=== PATIENT | female | born 1960 | race Hispanic/Latino ===

== ENCOUNTER 2021-10-02 13:51 | Inpatient (IN) | payer OTHER ==
[~2021-10-02] VITALS: Ht 149.9 cm; Wt 46.5 kg
[2021-10-02 14:27] LABS: BASOPHILS % (AUTO) 0.7 % (0.0-5.0); EOSINOPHILS % (AUTO) 1.2 % (0.0-8.0); HEMATOCRIT 38.6 % (36-48); MEAN CORPUSCULAR HEMOGLOBIN 28.7 pg (27.0-33.0); MEAN CORPUSCULAR HGB CONC 33.4 g/dL (32.0-36.0); MEAN CORPUSCULAR VOLUME 85.8 fL (79-99); MONOCYTES % (AUTO) 6.6 % (3.0-13.0); NEUTROPHILS % (AUTO) 63.2 % (40.0-77.0); PLATELET COUNT (AUTO) 325 K/uL (130-400); RED CELL DISTRIBUTION WIDTH 13.3 % (11.0-15.5); WHITE BLOOD COUNT (AUTO) 5.8 K/uL (4.8-10.8)
[2021-10-02] MEDS ORDERED: ASPIRIN 325MG TAB PO ONE (14:30)
[2021-10-02] MEDS ORDERED: NITROGLYCERIN 1GM OINT 1 INCH/1GM TD ONE (14:30)
[2021-10-02] MEDS ORDERED: NITROGLYCERIN 0.4 MG SL TAB SL PRN (14:30)
[2021-10-02 14:34] LABS: CREATININE 0.6 mg/dL (0.5-1.5)
[2021-10-02 14:43] LABS: ALBUMIN 3.3 g/dL (3.5-5.0); BILIRUBIN,TOTAL 0.3 mg/dL (0.2-1.0); MAGNESIUM 1.6 mg/dL (1.80-2.40); TOTAL PROTEIN, SERUM 7.2 g/dL (6.0-8.3)
[2021-10-02 14:48] LABS: B-TYPE NATRIURETIC PEPTIDE 23 pg/mL (0-100)
[2021-10-02 14:55] LABS: APPEARANCE,URINE Clear (CLEAR); BILIRUBIN,URINE Negative (NEGATIVE); COLOR,URINE Yellow (YELLOW); GLUCOSE, URINE (UA) 250 mg/dL (NEGATIVE); KETONES,URINE Negative (NEGATIVE); LEUKOCYTE ESTERASE ,URINE Small (NEGATIVE); NITRATE,URINE Negative (NEGATIVE); OCCULT BLOOD,URINE Negative (NEGATIVE); PH,URINE 5.5 (5.0-8.0); PROTEIN,URINE Negative (NEGATIVE); UROBILINOGEN,URINE 0.2 mg/dL (0.2-1.0)
[2021-10-02 15:14] LABS: BACTERIA,URINE Few /HPF (None Seen); RBC,URINE None Seen /HPF (0-1); SQUAMOUS EPITHELIAL CELL,UR 0-2 /HPF (0-2); TRICHOMONAS,URINE Few /LPF (None Seen)
[2021-10-02] MEDS ORDERED: LOSARTAN 25 MG TABLET PO ONE (17:00)
[2021-10-02] MEDS ORDERED: MORPHINE 2 MG SYG IVP PRN (17:00)
[2021-10-02 17:15] LABS: HEMOGLOBIN A1C 10.7 % (4.0-6.0)
[2021-10-02 20:09] VITALS: BP 126/56
[2021-10-02] MEDS ORDERED: GLIP5TAB11 PO (20:27)
[2021-10-02] MEDS ORDERED: METF-446 PO (20:28)
[2021-10-02] MEDS ORDERED: MECL-160 PO (20:28)
[2021-10-02] MEDS ORDERED: LOSA25TA41 PO (20:29)
[2021-10-02] MEDS ORDERED: MAGNESIUM 2GM PREMIX 50ML 50 ML IV SCH (20:30)
[2021-10-02] MEDS ORDERED: CEPH250C3 PO (20:36)
[2021-10-02] MEDS ORDERED: SERT-438 PO (20:36)
[2021-10-02] MEDS ORDERED: METOPROLOL TARTRATE 25 MG TAB PO SCH (21:00)
[2021-10-02] MEDS: CEPHALEXIN 500 MG CAPSULE PO SCH (21:02)
[2021-10-02] MEDS: ATORVASTATIN 40 MG TABLET PO SCH (21:02)
[2021-10-02 23:48] VITALS: BP 97/50
[2021-10-03 03:34] LABS: BASOPHILS % (AUTO) 0.5 % (0.0-5.0); EOSINOPHILS % (AUTO) 1.9 % (0.0-8.0); HEMATOCRIT 35.2 % (36-48); LYMPHOCYTES % (AUTO) 36.2 % (21.0-51.0); MEAN CORPUSCULAR HEMOGLOBIN 27.8 pg (27.0-33.0); MEAN CORPUSCULAR VOLUME 84.2 fL (79-99); MONOCYTES % (AUTO) 7.3 % (3.0-13.0); NEUTROPHILS % (AUTO) 53.8 % (40.0-77.0); PLATELET COUNT (AUTO) 318 K/uL (130-400); RED BLOOD CELL COUNT(AUTO) 4.18 MIL/uL (4.00-5.50); RED CELL DISTRIBUTION WIDTH 13.2 % (11.0-15.5); WHITE BLOOD COUNT (AUTO) 6.4 K/uL (4.8-10.8)
[2021-10-03 03:50] LABS: CREATININE 0.5 mg/dL (0.5-1.5); MAGNESIUM 2.1 mg/dL (1.80-2.40); POTASSIUM 4.3 mmol/L (3.5-5.1)
[2021-10-03 04:44] VITALS: BP 101/52
[2021-10-03 07:46] VITALS: BP 110/57
[2021-10-03] MEDS ORDERED: INSULIN GLARGINE 100 UNITS/ML 10 ML VIAL SQ SCH (08:00)
[2021-10-03] MEDS: CEPHALEXIN 500 MG CAPSULE PO SCH ×2 (08:10→21:03)
[2021-10-03] MEDS ORDERED: ASPIRIN 81MG CHEW TAB PO SCH (09:00)
[2021-10-03] MEDS ORDERED: LOSARTAN 25 MG TABLET PO SCH (09:00)
[2021-10-03] MEDS: METFORMIN HCL 500 MG TABLET PO SCH ×3 (09:07→17:07)
[2021-10-03 11:00] VITALS: BP 101/56
[2021-10-03 15:00] VITALS: BP 107/51
[2021-10-03 19:06] VITALS: BP 120/56
[2021-10-03] MEDS ORDERED: INSU3INS3 SQ (19:38)
[2021-10-03] MEDS ORDERED: PEN1DIS.48 MC (19:38)
[2021-10-03] MEDS ORDERED: METF-446 PO (19:38)
[2021-10-03] MEDS ORDERED: LOSA25TA41 PO (19:38)
[2021-10-03] MEDS ORDERED: ATOR40TA69 PO (19:48)
[2021-10-03] MEDS ORDERED: ASPI-1005 PO (19:48)
[2021-10-03] MEDS ORDERED: EMPA10TA PO (19:48)
[2021-10-03] MEDS ORDERED: SERT-438 PO (19:49)
[2021-10-03] MEDS: ATORVASTATIN 40 MG TABLET PO SCH (21:03)
== END 2021-10-03 21:50 | disposition home or self-care (01) | DRG 313 ==
LOC: EDH 13:51 → EDHIP 13:52 → OBSVTOIN 13:52 → 2AH 18:46
PROVIDERS: ADMIT Internal Medicine; ATTEND Internal Medicine
DX: R07.89 Other chest pain (principal); E11.65 Type 2 diabetes mellitus with hyperglycemia; E78.00 Pure hypercholesterolemia, unspecified; E78.5 Hyperlipidemia, unspecified; F32.A Depression, unspecified; Z86.73 Personal history of transient ischemic attack (TIA), and cerebral infarction without residual deficits
CPT/HCPCS: 36415; 70450; 71045; 80048; 80053; 80061; 81001; 82550; 82948; 83036; 83735; 83880; 84443; 84484; 85025; 87088; 92610; 93306; 93356; 97039; G0378; J3475

== ENCOUNTER 2023-06-08 19:06 | Emergency (ER) | payer OTHER ==
[~2023-06-08] VITALS: Ht 149.9 cm; Wt 59.0 kg
[~2023-06-08 19:06] MED LIST: ASPI-1005 PO; ATOR40TA69 PO; CEPH500B PO; CLOP-31 PO; EMPA10TA PO; INSU3INS3 SQ; LOSA25TA41 PO; METF-446 PO; METO25 PO; PEN1DIS.48 MC; SERT-438 PO
[2023-06-08 19:28] LABS: BASOPHILS # (AUTO) 0.03 K/uL (0.00-0.20); BASOPHILS % (AUTO) 0.5 % (0.0-5.0); EOSINOPHILS # (AUTO) 0.18 K/uL (0.00-0.70); HEMATOCRIT 30.7 % (36-48); IMMATURE GRANULOCYTE ABSOLUTE 0.01 K/uL (0-1); LYMPHOCYTES # (AUTO) 1.9 K/uL (1.0-4.8); LYMPHOCYTES % (AUTO) 30.7 % (21.0-51.0); MEAN CORPUSCULAR HEMOGLOBIN 28.9 pg (27.0-33.0); MEAN CORPUSCULAR HGB CONC 34.5 g/dL (32.0-36.0); MEAN CORPUSCULAR VOLUME 83.7 fL (79-99); MONOCYTES # (AUTO) 0.4 K/uL (0.1-1.0); MONOCYTES % (AUTO) 6.3 % (3.0-13.0); NEUTROPHILS # (AUTO) 3.6 K/uL (1.8-7.7); NEUTROPHILS % (AUTO) 59.3 % (40.0-77.0); PLATELET COUNT (AUTO) 294 K/uL (130-400); RED BLOOD CELL COUNT(AUTO) 3.67 MIL/uL (4.00-5.50); RED CELL DISTRIBUTION WIDTH 13.5 % (11.0-15.5); WHITE BLOOD COUNT (AUTO) 6.1 K/uL (4.8-10.8)
[2023-06-08 19:41] LABS: CREATININE 0.7 mg/dL (0.5-1.5); POTASSIUM 3.6 mmol/L (3.5-5.1)
[2023-06-08 19:45] LABS: BILIRUBIN,TOTAL 0.2 mg/dL (0.2-1.0)
[2023-06-08 19:46] LABS: ALBUMIN 3.1 g/dL (3.5-5.0); TOTAL PROTEIN, SERUM 7.1 g/dL (6.0-8.3)
[2023-06-08 19:48] LABS: INR < 0.93 (0.85-1.15)
[2023-06-08] MEDS ORDERED: IOHEXOL-350 75 ML VIAL IV ONE (20:57)
[2023-06-08] MEDS ORDERED: GLIP5TAB15 PO (21:48)
[2023-06-08 22:17] VITALS: BP 138/74; PULSE 86; RESP 18; O2SAT 98
== END 2023-06-08 22:21 | disposition home or self-care (01) ==
LOC: EDH 19:06
DX: R09.89 Other specified symptoms and signs involving the circulatory and respiratory systems (principal); M79.10 Myalgia, unspecified site; I10 Essential (primary) hypertension; E11.9 Type 2 diabetes mellitus without complications; E78.00 Pure hypercholesterolemia, unspecified; Z79.82 Long term (current) use of aspirin; Z79.84 Long term (current) use of oral hypoglycemic drugs; Z79.899 Other long term (current) drug therapy; Z98.890 Other specified postprocedural states
CPT/HCPCS: 99285; 71260; 71045; 84484; 80053; 83880; 83690; 85025; 85610; 85730; 36415; 93005; Q9967

== ENCOUNTER 2023-11-22 13:53 | Emergency (ER) | payer OTHER ==
[~2023-11-22] VITALS: Ht 149.9 cm; Wt 63.5 kg
[~2023-11-22 13:53] MED LIST changes: +GLIP5TAB15 PO
[2023-11-22 16:01] LABS: BASOPHILS # (AUTO) 0.03 K/uL (0.00-0.20); BASOPHILS % (AUTO) 0.3 % (0.0-5.0); EOSINOPHILS # (AUTO) 0.02 K/uL (0.00-0.70); EOSINOPHILS % (AUTO) 0.2 % (0.0-8.0); HEMATOCRIT 38.1 % (36-48); IMMATURE GRANULOCYTE ABSOLUTE 0.07 K/uL (0-1); LYMPHOCYTES # (AUTO) 1.8 K/uL (1.0-4.8); LYMPHOCYTES % (AUTO) 16.4 % (21.0-51.0); MEAN CORPUSCULAR HEMOGLOBIN 28.1 pg (27.0-33.0); MEAN CORPUSCULAR HGB CONC 33.6 g/dL (32.0-36.0); MEAN CORPUSCULAR VOLUME 83.6 fL (79-99); MONOCYTES # (AUTO) 0.7 K/uL (0.1-1.0); MONOCYTES % (AUTO) 6.2 % (3.0-13.0); NEUTROPHILS # (AUTO) 8.3 K/uL (1.8-7.7); NEUTROPHILS % (AUTO) 76.3 % (40.0-77.0); PLATELET COUNT (AUTO) 340 K/uL (130-400); RED BLOOD CELL COUNT(AUTO) 4.56 MIL/uL (4.00-5.50); RED CELL DISTRIBUTION WIDTH 13.2 % (11.0-15.5); WHITE BLOOD COUNT (AUTO) 10.9 K/uL (4.8-10.8)
[2023-11-22 16:07] LABS: CREATININE 0.8 mg/dL (0.5-1.0); POTASSIUM 3.5 mmol/L (3.5-5.1)
[2023-11-22 16:16] LABS: ALBUMIN 2.7 g/dL (3.5-5.0); BILIRUBIN,TOTAL 0.7 mg/dL (0.2-1.0); TOTAL PROTEIN, SERUM 8.2 g/dL (6.0-8.3)
[2023-11-22] MEDS: ONDANSETRON 4MG INJ IVP ONE (16:54)
[2023-11-22] MEDS: MORPHINE 4 MG SYG IVP ONE (16:54)
[2023-11-22 17:22] LABS: ADD UA MICROSCOPIC YES; APPEARANCE,URINE TURBID (CLEAR); BILIRUBIN,URINE NEGATIVE (NEGATIVE); COLOR,URINE YELLOW (YELLOW); GLUCOSE, URINE (UA) >=1000 mg/dL (NEGATIVE); KETONES,URINE 40 mg/dL (NEGATIVE); LEUKOCYTE ESTERASE ,URINE 500 Leu/uL (NEGATIVE); NITRATE,URINE NEGATIVE (NEGATIVE); OCCULT BLOOD,URINE MODERATE (NEGATIVE); PH,URINE 5.5 (5.0-8.0); PROTEIN,URINE 100 mg/dL (NEGATIVE)
[2023-11-22 17:23] LABS: BACTERIA,URINE MOD /HPF (None Seen); MUCUS,URINE RARE LPF (None Seen); NON-SQUAMOUS EPITHELIAL CELL 2 /HPF (0-2); SQUAMOUS EPITHELIAL CELL,UR FEW /HPF (0-2); WBC CLUMP MOD /HPF (0-1); WBC,URINE 26-50 /HPF (0-1)
[2023-11-22 17:49] VITALS: BP 134/71; PULSE 76; RESP 18; O2SAT 98
== END 2023-11-22 17:48 | disposition home or self-care (01) ==
LOC: EDH 13:53
DX: R10.9 Unspecified abdominal pain (principal); I10 Essential (primary) hypertension; E11.9 Type 2 diabetes mellitus without complications; E78.00 Pure hypercholesterolemia, unspecified; Z79.82 Long term (current) use of aspirin; Z79.84 Long term (current) use of oral hypoglycemic drugs; Z79.899 Other long term (current) drug therapy; Z98.890 Other specified postprocedural states
CPT/HCPCS: 99285; 74176; 96374; 96375; 84484; 80053; 83690; 85025; 87086 ×2; 87186; 81001; 36415; 93005; J2405; J2270

== ENCOUNTER 2023-12-04 20:56 | Emergency (ER) | payer OTHER ==
[~2023-12-04] VITALS: Ht 144.8 cm; Wt 49.9 kg
[2023-12-04 21:31] LABS: BASOPHILS # (AUTO) 0.05 K/uL (0.00-0.20); BASOPHILS % (AUTO) 0.7 % (0.0-5.0); EOSINOPHILS # (AUTO) 0.05 K/uL (0.00-0.70); EOSINOPHILS % (AUTO) 0.7 % (0.0-8.0); IMMATURE GRANULOCYTE ABSOLUTE 0.01 K/uL (0-1); MEAN CORPUSCULAR HEMOGLOBIN 27.4 pg (27.0-33.0); MEAN CORPUSCULAR HGB CONC 33.4 g/dL (32.0-36.0); MEAN CORPUSCULAR VOLUME 81.9 fL (79-99); MONOCYTES # (AUTO) 0.4 K/uL (0.1-1.0); MONOCYTES % (AUTO) 5.2 % (3.0-13.0); NEUTROPHILS # (AUTO) 4.8 K/uL (1.8-7.7); NEUTROPHILS % (AUTO) 65.3 % (40.0-77.0); PLATELET COUNT (AUTO) 482 K/uL (130-400); RED BLOOD CELL COUNT(AUTO) 4.64 MIL/uL (4.00-5.50); RED CELL DISTRIBUTION WIDTH 13.3 % (11.0-15.5); WHITE BLOOD COUNT (AUTO) 7.3 K/uL (4.8-10.8)
[2023-12-04 21:48] LABS: CREATININE 0.7 mg/dL (0.5-1.0); POTASSIUM 3.9 mmol/L (3.5-5.1)
[2023-12-04 21:57] LABS: ALBUMIN 2.9 g/dL (3.5-5.0); BILIRUBIN,TOTAL 0.3 mg/dL (0.2-1.0); TOTAL PROTEIN, SERUM 7.5 g/dL (6.0-8.3)
[2023-12-04] MEDS: 0.9%NACL 1000ML 1,000 ML IV ONE (22:02)
[2023-12-04] MEDS: FAMOTIDINE 20MG VIAL IV ONE (22:02)
[2023-12-04] MEDS: ONDANSETRON 4MG INJ IVP ONE (22:02)
[2023-12-04 23:38] LABS: SARS-CoV-2, RNA, NAAT NEGATIVE SARS CoV-2 (NEGATIVE)
[2023-12-04 23:46] LABS: INFLUENZA TYPE A Negative For Type A (NEGATIVE); INFLUENZA TYPE B Negative For Type B (NEGATIVE)
[2023-12-05] MEDS ORDERED: FAMO-136 PO (01:01)
[2023-12-05] MEDS ORDERED: ONDA-243 PO (01:01)
[2023-12-05 01:27] VITALS: BP 122/63; PULSE 66; RESP 20; O2SAT 99
[2023-12-05] MEDS: ONDANSETRON 4MG INJ IVP ONE (01:27)
== END 2023-12-05 01:29 | disposition home or self-care (01) ==
LOC: EDH 20:56
DX: R11.2 Nausea with vomiting, unspecified (principal); R42 Dizziness and giddiness; I10 Essential (primary) hypertension; E11.9 Type 2 diabetes mellitus without complications; E78.00 Pure hypercholesterolemia, unspecified; Z20.822 Contact with and (suspected) exposure to COVID-19; Z79.82 Long term (current) use of aspirin; Z79.84 Long term (current) use of oral hypoglycemic drugs; Z79.899 Other long term (current) drug therapy; Z98.890 Other specified postprocedural states
CPT/HCPCS: 99285; 96374; 70450; 71045; 87635; 96361; 96375; 84484 ×2; 80053; 83690; 85025; 87804 ×2; 36415; 93005; 96376; J3490; J7030; J2405 ×2